=== PATIENT | female | born 1980 | race Caucasian/White ===

== ENCOUNTER → 2016-10-08 | Outpatient (CLI) | payer MEDICAID ==
[~2016-10-08] MED LIST: CITR500T PO; GAS-CAP3 PO; MAKE250I IM; PREN1CHW7 PO
== END ==
LOC: HPND 09:04
PROVIDERS: ATTEND Obstetrics & Gynecology
DX: O09.522 Supervision of elderly multigravida, second trimester (principal); O09.212 Supervision of pregnancy with history of pre-term labor, second trimester; Z3A.19 19 weeks gestation of pregnancy
CPT/HCPCS: 76811; 76817

== ENCOUNTER → 2016-10-21 | Outpatient (CLI) | payer MEDICAID | LOC: HPND 08:25 | PROVIDERS: ATTEND Obstetrics & Gynecology | DX: O09.522 Supervision of elderly multigravida, second trimester (principal); O09.212 Supervision of pregnancy with history of pre-term labor, second trimester; Z3A.21 21 weeks gestation of pregnancy | CPT/HCPCS: 76815; 76817 ==

== ENCOUNTER → 2016-10-29 | Outpatient (CLI) | payer MEDICAID ==
--- NOTE | 2016-10-29 16:30 | MH ---
cc: GINNY SAENZ MD DATE OF ADMISSION: 10/29/2016 HISTORY: This patient is a 35 year-old female, she is a 4, Para 1, who is being admitted to [facility] for Cervical cerclage. HISTORY OF PRESENT ILLNESS: The patient is well known to the practice and followed in the clinic throughout her . She is approximately 23 weeks gestation and has a history of one which was . Because of that we have been following her with maternal field medicine measuring cervical length and her recent cervical length was markedly shortened at 1.2 cm's. This despite her also being on [place]. In consultation with regional obstetrics. We have discussed the proceeding with cervical cerclage and this will be done tomorrow. OBSTETRICAL HISTORY: Includes a term delivery and two deliveries. The weights of the infants were between 3 lbs and 8 lbs. PAST MEDICAL HISTORY: Essentially noncontributory. SOCIAL HISTORY: She is a smoker and admits to smoking every day. ALLERGIES LATEX PENICILLIN PAST SURGICAL HISTORY: Noncontributory. PHYSICAL EXAMINATION: IN GENERAL: The patient seemed well developed, well nourished, in no acute distress. VITAL SIGNS: Blood pressure 110/60, pulse 70, respirations 12. HEAD, EARS, EYES, NOSE, AND THROAT: Negative. CHEST: Clear to auscultation. CARDIOVASCULAR SYSTEM: Revealed a regular rate. ABDOMEN: The abdomen reveals fundal height 23 weeks, positive heart tones. PELVIC: Examination was deferred. EXTREMITIES: Revealed no clubbing, cyanosis or edema. NEUROLOGIC/PSYCHIATRIC: The patient is oriented times three. Showed no gross neurocranial deficit. IMPRESSION: On admission is cervical incompentency with a history of delivery. PLAN: To receive cervical cerclage. MD YVETTE [place]/ed /3:27 PM /4:07 PM
== END ==
LOC: HPND 13:19
PROVIDERS: ATTEND Obstetrics & Gynecology
DX: O09.522 Supervision of elderly multigravida, second trimester (principal); O26.872 Cervical shortening, second trimester; Z3A.00 Weeks of gestation of pregnancy not specified
CPT/HCPCS: 76815; 76817

== ENCOUNTER → 2016-10-30 | Day surgery (SDC) | payer MEDICAID ==
[~2016-10-30] VITALS: Ht 167.6 cm; Wt 75.2 kg
[~2016-10-30] MED LIST changes: +CLINDAMYCIN PHOS 900 MG/6 ML VIAL ONE; +DO NOT ADM ANY ANTICOAGULANT DRUGS PRN; +ceFAZolin 2 GM PREMIX 50 ML IV SCH
[2016-10-30 12:26] VITALS: BP 111/68; PULSE 74; RESP 20; TEMP 98.4; O2SAT 99
[2016-10-30 15:50] VITALS: BP 119/67; PULSE 77; RESP 20; TEMP 97.7; O2SAT 100
--- NOTE | 2016-10-31 08:16 | MP ---
cc: JASON WILLARD MD DATE OF SURGERY 10/30/2016 PREOPERATIVE DIAGNOSIS Cervical incompetence. POSTOPERATIVE DIAGNOSIS Cervical incompetence. OPERATION Cervical cerclage. SURGEON MD Sudheer ANESTHESIA Spinal. ESTIMATED BLOOD LOSS Minimal. COMPLICATIONS None. S[employer] None. FINDINGS Findings were consistent with an extremely effaced cervix, approximately 80% effaced. The cervical length was extremely short and probably less than 1 cm. PROCEDURE The patient was prepped and draped in dorsal lithotomy position. A weighted speculum was placed in the posterior vaginal vault and the anterior lip of the cervix was grasped with a single-tooth tenaculum. Using a #1 Prolene, a circumferential suture was placed approximately 1 cm from the cervical orifice and then tied in the midline. A second suture of #1 Prolene was also placed, approximately 0.5 cm from the first, also in a circumferential suture. The suture was also tied in the midline. After good hemostasis was noted, the tenaculum was removed and the patient returned to the recovery room in stable condition. Jason Willard MD JSG/SSB /2:01 PM /8:09 AM
== END | disposition home or self-care (01) ==
LOC: HSDC 11:14
PROVIDERS: ATTEND Obstetrics & Gynecology
DX: O34.32 Maternal care for cervical incompetence, second trimester (principal); O99.332 Smoking (tobacco) complicating pregnancy, second trimester; O09.522 Supervision of elderly multigravida, second trimester; Z3A.23 23 weeks gestation of pregnancy; Z87.51 Personal history of pre-term labor; Z88.0 Allergy status to penicillin; Z91.040 Latex allergy status

== ENCOUNTER → 2016-11-04 | Outpatient (CLI) | payer MEDICAID ==
[~2016-11-04] MED LIST changes: -CLINDAMYCIN PHOS 900 MG/6 ML VIAL ONE; -DO NOT ADM ANY ANTICOAGULANT DRUGS PRN; -ceFAZolin 2 GM PREMIX 50 ML IV SCH
== END ==
LOC: HPND 09:28
PROVIDERS: ATTEND Obstetrics & Gynecology
DX: O09.522 Supervision of elderly multigravida, second trimester (principal); O09.212 Supervision of pregnancy with history of pre-term labor, second trimester
CPT/HCPCS: 76816; 76817

== ENCOUNTER → 2016-12-06 | Outpatient (CLI) | payer MEDICAID ==
[~2016-12-06] MED LIST changes: +PROM25TA10 PO
== END ==
LOC: HPND 09:49
PROVIDERS: ATTEND Obstetrics & Gynecology
DX: O09.522 Supervision of elderly multigravida, second trimester (principal); O34.32 Maternal care for cervical incompetence, second trimester
CPT/HCPCS: 76816; 76817; 96372

== ENCOUNTER → 2016-12-09 | Outpatient (CLI) | payer MEDICAID ==
[~2016-12-09] MED LIST changes: +BETAMETHASONE SOD PHOS/ACETATE SUSP 30 MG/5 ML VIAL IM ONE
== END ==
LOC: HOBG 09:10
PROVIDERS: ATTEND Obstetrics & Gynecology
DX: O09.212 Supervision of pregnancy with history of pre-term labor, second trimester (principal); O34.32 Maternal care for cervical incompetence, second trimester
CPT/HCPCS: 96372; J0702

== ENCOUNTER → 2016-12-10 | Outpatient (CLI) | payer MEDICAID | LOC: HOBG 08:30 | PROVIDERS: ATTEND Obstetrics & Gynecology | DX: O09.212 Supervision of pregnancy with history of pre-term labor, second trimester (principal); O34.32 Maternal care for cervical incompetence, second trimester | CPT/HCPCS: 96372; J0702 ==

== ENCOUNTER → 2017-01-01 | Outpatient (CLI) | payer MEDICAID ==
[~2017-01-01] MED LIST changes: -BETAMETHASONE SOD PHOS/ACETATE SUSP 30 MG/5 ML VIAL IM ONE; +BETAMETHASONE SOD PHOS/ACETATE SUSP 30 MG/5 ML VIAL IM SCH
== END ==
LOC: HOBG 10:57
PROVIDERS: ATTEND Obstetrics & Gynecology
DX: O60.03 Preterm labor without delivery, third trimester (principal); Z3A.00 Weeks of gestation of pregnancy not specified
CPT/HCPCS: 96372; J0702

== ENCOUNTER → 2017-01-02 | Outpatient (CLI) | payer MEDICAID ==
[~2017-01-02] MED LIST changes: +BETAMETHASONE SOD PHOS/ACETATE SUSP 30 MG/5 ML VIAL IM ONE; -BETAMETHASONE SOD PHOS/ACETATE SUSP 30 MG/5 ML VIAL IM SCH
== END ==
LOC: HOBG 10:25
PROVIDERS: ATTEND Obstetrics & Gynecology
DX: O60.03 Preterm labor without delivery, third trimester (principal); Z3A.00 Weeks of gestation of pregnancy not specified
CPT/HCPCS: J0702

== ENCOUNTER → 2017-01-06 | Outpatient (CLI) | payer MEDICAID ==
[~2017-01-06] MED LIST changes: -BETAMETHASONE SOD PHOS/ACETATE SUSP 30 MG/5 ML VIAL IM ONE
== END ==
LOC: HPND 08:06
PROVIDERS: ATTEND Obstetrics & Gynecology
DX: O09.523 Supervision of elderly multigravida, third trimester (principal); O34.33 Maternal care for cervical incompetence, third trimester; O99.333 Smoking (tobacco) complicating pregnancy, third trimester
CPT/HCPCS: 76816

== ENCOUNTER 2017-01-28 13:08 | Inpatient (IN) | payer MEDICAID ==
[2017-01-28] VITALS (43 sets, daily range): BP systolic 90–139; BP diastolic 44–89; PULSE 62–87; RESP 18; TEMP 97.4–98.1
[~2017-01-28] VITALS: Ht 170.2 cm; Wt 82.0 kg
--- NOTE | 2017-01-28 14:44 | PD ---
HPI Chief Complaint Gush of fluid from vagina Date Seen: Jan 28, 2017 Travel History International Travel<30 Days: No Contact w/Intl Traveler<30Days: No Known Affected Area: No History of Present Illness HPI Patient is a 36 year old at 35 and 2/7 weeks who presented today for a "gush of fluid" from her vagina. The patient states it occurred earlier today, was clear, no blood or other discharge. States she has had contractions for the past 5 months, however notes today that the contraction are stronger and spaced closer together at 1 every 3-5 minutes. No complaints of chest pain, shortness of breath, headache, changes in vision, other abdominal pains, changes in urination or changes in bowel habits. The patient reports tat she has been induced for her past 3 pregnancies and has a cerclage in place at this time. States she was breech at last US. Otherwise reports no other complications during this . Weeks Gestation: 35 Para: 3 : 4 Miscarriage: 0 : 0 History Past Medical History Medical History: Denies Significant Hx Obstetric History Obstetric History 3 past inductions, cervical insufficiency Past Surgical History Surgical History: No Previous Surgery Family History Family History: Negative Social History Alcohol Use: No Tobacco Use: Yes (States she was a daily smoker during the first trimester) Substance Abuse: No Allergies-Medications (Allergen,Severity, Reaction): Coded Allergies: latex (Verified Allergy, Unknown, 01/28/17) penicillin G (Verified Allergy, Unknown, 01/28/17) Home Meds Active Scripts Promethazine (Phenergan) 25 Mg Tablet, 25 MG PO Q6H Y for SLEEP, #10 TAB 0 Refills Prov:Jason Willard MD 12/11/16 Vit W/ Ferric Phospha (Vitafol Gummies 3.33-0.333-34.8 mg) 1 Chw Chw, 1 CAPLET PO DAILY Y for Nutritional Supplement, #90 BOTTLE Prov:Jason Willard MD 08/14/16 Reported Medications Hydroxyprogesterone Caproate Inj (Rafia Inj) 250 Mg/Ml Inj, 250 MG IM ONCE for , #1 VIAL 0 Refills 11/11/16 Methylcellulose (Citrucel) 500 Mg Tab, 2 TAB PO DAILY, TAB 0 Refills 10/30/16 Simethicone (Gas-X Ultra Strength) 180 Mg Cap, 180 MG PO TID Y for GAS RETENTION , CAP 0 Refills 10/30/16 Review of Systems General / Constitutional: No: Fever, Chills Eyes: No: Diploplia, Blurred Vision, Visual changes, Pain HENT: No: Headaches, Vertigo, Lightheadedness Cardiovascular: No: Irregular Rhythm, Chest Pain or Discomfort, Palpitations, Tachycardia, Syncope Respiratory: No: Cough, Short of Breath, Wheezing Gastrointestinal: Constipation, No: Nausea, Vomiting, Diarrhea, Abdominal Pain , Hematemesis, Hematochezia Genitourinary: No: Urgency, Frequency, Dysuria, Nocturia, Hematuria, Decreased Urinary Output, Incontinence Musculoskeletal: Cramping, No: Limited ROM, Weakness Skin: No Rash, No Itching, No Dryness Neurologic: No: Weakness, Dizziness, Syncope, Headache Psychiatric: No: Anxiety, Depression Endocrine: No: Heat Intolerance, Cold Intolerance Physical Exam Narrative GENERAL: Well-nourished, well-developed patient. SKIN: Warm and dry. HEAD: Normocephalic and atraumatic. EYES: No scleral icterus. No injection or drainage. ENT: No nasal drainage noted. Mucous membranes pink. Airway patent. NECK: Supple, trachea midline. No JVD. CARDIOVASCULAR: Regular rate and rhythm without murmurs, gallops, or rubs. RESPIRATORY: Breath sounds equal bilaterally. No accessory muscle use. ABDOMEN/GI: Abdomen soft, non-tender, bowel sounds present, no rebound, no guarding GENITOURINARY: External Genitalia: intact and normal in appearance Dilatation: 2 Effacement: 80 Station: -2 Presentation: Vertex Membranes: SROM Uterine Contractions: 3-5 minutes FHT's: Category: 1 Baseline: 130 Reactive: + Variability: moderate Decels: none EXTREMITIES: No cyanosis or edema. BACK: Nontender without obvious deformity. No CVA tenderness. NEUROLOGICAL: Awake and alert. Motor and sensory grossly within normal limits. Five out of 5 muscle strength in all muscle groups. Normal speech. MDM Narrative Course / MDM 36 year old at 35 and 2/7 who presented with gush of fluid and strengthening contractions increasing in frequency. Amnisure positive. Currently in active labor. States GBS (-), unable to verify in EMR at this time. Vertex presentation on bedside US. - Admitted to labor and delivery - Category 1 tracing reassuring - Expectant delivery - GBS confirmed negative via phone call to office - Cerclage to be removed d/w Dr. Lay Diagnosis Diagnosis: Primary Impression: labor in third trimester Additional Impression: 35 weeks gestation of Constantin Summers MD R1 Jan 28, 2017 14:44
[2017-01-28] MEDS ORDERED: LACTATED RINGER'S 1000 ML INJ 1,000 ML IV PRN (15:05)
[2017-01-28] MEDS: LACTATED RINGER'S 1000 ML INJ 1,000 ML IV SCH ×3 (15:05→23:05)
[2017-01-28] MEDS ORDERED: OXYTOCIN 30 UNITS-500ML PREMIX 500 ML IV ONE (15:15)
[2017-01-28] MEDS ORDERED: SODIUM CHLORID 0.9% 500 ML INJ 500 ML IV PRN (15:15)
[2017-01-28] MEDS ORDERED: MINERAL OIL 10 ML VIAL TOPICAL PRN (15:15)
[2017-01-28] MEDS ORDERED: LIDOCAINE HCL 1% 50 ML VIAL INFIL PRN (15:15)
[2017-01-28] MEDS ORDERED: LIDOCAINE HCL 1% 50 ML VIAL I-DERMAL PRN (15:15)
[2017-01-28] MEDS ORDERED: ONDANSETRON HCL 4 MG/2 ML VIAL IV PRN (15:15)
[2017-01-28] MEDS ORDERED: CITRIC ACID-SODIUM CITRATE LIQ 30 ML UDC PO SCH (15:15)
[2017-01-28] MEDS ORDERED: SODIUM CHLOR 0.9% 1000 ML INJ 1,000 ML IV PRN (15:25)
--- NOTE | 2017-01-28 15:51 | HHI.HP ---
History & Physical H&P HPI HPI Chief Complaint Gush of fluid from vagina Date Seen: Jan 28, 2017 Travel History International Travel<30 Days: No Contact w/Intl Traveler<30Days: No Known Affected Area: No History of Present Illness HPI Patient is a 36 year old at 35 and 2/7 weeks who presented today for a "gush of fluid" from her vagina. The patient states it occurred earlier today, was clear, no blood or other discharge. States she has had contractions for the past 5 months, however notes today that the contraction are stronger and spaced closer together at 1 every 3-5 minutes. No complaints of chest pain, shortness of breath, headache, changes in vision, other abdominal pains, changes in urination or changes in bowel habits. The patient reports tat she has been induced for her past 3 pregnancies and has a cerclage in place at this time. States she was breech at last US. Otherwise reports no other complications during this . Weeks Gestation: 35 Para: 3 : 4 Miscarriage: 0 : 0 History (Limited) History Past Medical History Medical History: Denies Significant Hx Obstetric History Obstetric History 3 past inductions, cervical insufficiency Past Surgical History Surgical History: No Previous Surgery Family History Family History: Negative Social History Alcohol Use: No Tobacco Use: Yes (States she was a daily smoker during the first trimester) Substance Abuse: No Allergies-Medications Allergies-Medications (Allergen,Severity, Reaction): Coded Allergies: latex (Verified Allergy, Unknown, 01/28/17) penicillin G (Verified Allergy, Unknown, 01/28/17) Home Meds Active Scripts Promethazine (Phenergan) 25 Mg Tablet, 25 MG PO Q6H Y for SLEEP, #10 TAB 0 Refills Prov:Jason Willard MD 12/11/16 Vit W/ Ferric Phospha (Vitafol Gummies 3.33-0.333-34.8 mg) 1 Chw Chw, 1 CAPLET PO DAILY Y for Nutritional Supplement, #90 BOTTLE Prov:Jason Willadr MD 08/14/16 Reported Medications Hydroxyprogesterone Caproate Inj ([place] Inj) 250 Mg/Ml Inj, 250 MG IM ONCE for , #1 VIAL 0 Refills 11/11/16 Methylcellulose (Citrucel) 500 Mg Tab, 2 TAB PO DAILY, TAB 0 Refills 10/30/16 Simethicone (Gas-X Ultra Strength) 180 Mg Cap, 180 MG PO TID Y for GAS RETENTION , CAP 0 Refills 10/30/16 ROS Review of Systems General / Constitutional: No: Fever, Chills Eyes: No: Diploplia, Blurred Vision, Visual changes, Pain HENT: No: Headaches, Vertigo, Lightheadedness Cardiovascular: No: Irregular Rhythm, Chest Pain or Discomfort, Palpitations, Tachycardia, Syncope Respiratory: No: Cough, Short of Breath, Wheezing Gastrointestinal: Constipation, No: Nausea, Vomiting, Diarrhea, Abdominal Pain , Hematemesis, Hematochezia Genitourinary: No: Urgency, Frequency, Dysuria, Nocturia, Hematuria, Decreased Urinary Output, Incontinence Musculoskeletal: Cramping, No: Limited ROM, Weakness Skin: No Rash, No Itching, No Dryness Neurologic: No: Weakness, Dizziness, Syncope, Headache Psychiatric: No: Anxiety, Depression Endocrine: No: Heat Intolerance, Cold Intolerance Physical Exam Physical Exam Narrative GENERAL: Well-nourished, well-developed patient. SKIN: Warm and dry. HEAD: Normocephalic and atraumatic. EYES: No scleral icterus. No injection or drainage. ENT: No nasal drainage noted. Mucous membranes pink. Airway patent. NECK: Supple, trachea midline. No JVD. CARDIOVASCULAR: Regular rate and rhythm without murmurs, gallops, or rubs. RESPIRATORY: Breath sounds equal bilaterally. No accessory muscle use. ABDOMEN/GI: Abdomen soft, non-tender, bowel sounds present, no rebound, no guarding GENITOURINARY: External Genitalia: intact and normal in appearance Dilatation: 2 Effacement: 80 Station: -2 Presentation: Vertex Membranes: SROM Uterine Contractions: 3-5 minutes FHT's: Category: 1 Baseline: 130 Reactive: + Variability: moderate Decels: none EXTREMITIES: No cyanosis or edema. BACK: Nontender without obvious deformity. No CVA tenderness. NEUROLOGICAL: Awake and alert. Motor and sensory grossly within normal limits. Five out of 5 muscle strength in all muscle groups. Normal speech. Data Data MDM MDM Narrative Course / MDM 36 year old at 35 and 2/7 who presented with gush of fluid and strengthening contractions increasing in frequency. Amnisure positive. Currently in active labor. States GBS (-), unable to verify in EMR at this time. Vertex presentation on bedside US. - Admitted to labor and delivery - Category 1 tracing reassuring - Expectant delivery - GBS confirmed negative VIA phone call to office - Cerclage to be removed d/w Dr. Lay Diagnosis Diagnosis: Primary Impression: labor in third trimester Additional Impression: 35 weeks gestation of Constantin Summers MD R1 Jan 28, 2017 15:51
[2017-01-28 16:04] LABS: AUTOMATED NEUTROPHIL # 8.9 TH/MM3 (1.8-7.7); BASOPHIL % 0.3 % (0.0-2.0); EOSINOPHIL % 0.3 % (0.0-4.0); HEMATOCRIT 35.8 % (35.0-46.0); HEMO FLAGS DIFF FINAL; LYMPH % 14.4 % (9.0-44.0); LYMPHOCYTE # 1.7 TH/MM3 (1.0-4.8); MEAN CELL VOLUME 90.1 FL (80.0-100.0); MEAN CORPUSCULAR HEMOGLOBIN 30.6 PG (27.0-34.0); MONO % 8.9 % (0.0-8.0); NEUT % 76.1 % (16.0-70.0); PLATELET COUNT 226 TH/MM3 (150-450); RED BLOOD COUNT 3.97 MIL/MM3 (4.00-5.30); RED CELL DISTRIBUTION WIDTH 15.4 % (11.6-17.2); WHITE BLOOD COUNT 11.7 TH/MM3 (4.0-11.0)
[2017-01-28] MEDS ORDERED: OXYTOCIN 30 UNITS-500ML PREMIX 500 ML IV SCH (16:15)
--- NOTE | 2017-01-28 16:45 | HHI.PR ---
Subjective Remarks Cerclage removal procedure note Patient was examined and cerclage visible, palpated to have closed cervic with cerclage palpable. Patient was consented from procedure including pain, infection, bleeding, difficult removal with cervical trauma, need for removal in OR, failure to remove entire cerclage and other possible complications. Patient reexamined and cerclage dislodged during examination and removed with a ring forcep. No bleeding noted. Patient tolerated procedure well. Objective Vital Signs Date Time Temp Pulse Resp B/P (MAP) Pulse Ox O2 Delivery O2 Flow Rate FiO2 01/28/17 16:32 18 01/28/17 15:45 98.1 01/28/17 15:43 18 01/28/17 15:32 78 134/71 (92) Result Diagram: 01/28/17 1450 Bel Lay MD Jan 28, 2017 16:45
[2017-01-28] MEDS ORDERED: CLINDAMYCIN INJ 900 MG in SODIUM CHLORIDE 0.9% INJ 100 ML IV SCH (17:00)
[2017-01-28] MEDS ORDERED: fentaNYL 2MCG-BUPIV 0.125% INJ 100 ML ONE (22:11)
--- NOTE | 2017-01-28 22:30 | PD.LABORPN ---
Subjective Subjective Patient received fentanyl for pain, is planning on epidural Objective Vital Signs Vital Signs Date Time Temp Pulse Resp B/P (MAP) Pulse Ox O2 Delivery O2 Flow Rate FiO2 01/28/17 22:19 18 01/28/17 22:18 97.9 01/28/17 22:17 73 124/71 (88) 01/28/17 21:45 18 01/28/17 21:31 87 137/83 (101) 01/28/17 21:04 18 01/28/17 21:01 76 119/45 (69) 01/28/17 20:15 18 01/28/17 20:01 76 120/67 (84) 01/28/17 19:29 97.4 01/28/17 19:13 72 133/89 (104) 01/28/17 19:12 18 01/28/17 18:30 18 01/28/17 18:22 75 120/69 (86) 01/28/17 17:49 97.8 76 18 127/73 (91) 01/28/17 17:19 18 01/28/17 17:18 73 123/63 (83) 01/28/17 16:45 74 133/73 (93) 01/28/17 16:33 79 120/71 (87) 01/28/17 16:32 18 01/28/17 15:45 98.1 01/28/17 15:43 18 01/28/17 15:32 78 134/71 (92) Objective Pelvic Exam: 4/80/-3ed] Uterine Contractions: [-] FHT's: 115s, moderate LTV, good accels, no decels at this time A/P: 1. IUP at 35.1 2. PPROM: continue oxytocin 3. GBS neg 4. FHR reassuring, continue EFM Weeks Gestation: 35 Gest Age Assessed Date: Jan 28, 2017 Gest Age Assessed Time: 22:30 Pt started active labor?: Yes Active labor start date: Jan 28, 2017 Active labor start time: 22:30 Medical induction of labor?: Yes Medical induction start date: Jan 28, 2017 Medical induction start time: 17:00 Artificial rupture of membrane: No Bel Lay MD Jan 28, 2017 22:30
[2017-01-28 23:28] LABS: BACTERIA, URINE RARE /hpf; BLOOD, URINE NEG (NEG); COMMENT (UR) CULT NOT INDICATED; CULTURE IF INDICATED CULT NOT INDICATED; GLUCOSE,URINE NEG (NEG); KETONE, URINE NEG (NEG); MUCUS URINE FEW /lpf (OCC); NITRITE,URINE NEG (NEG); PH, URINE 5.5 (5.0-8.5); URINE COLOR YELLOW (YELLW/STRAW)
[2017-01-28] MEDS ORDERED: NO SYSTEM NARCOTICS PRN (23:30)
[2017-01-28] MEDS ORDERED: ePHEDrine/NS 25 MG/5 ML SYR IV PRN (23:30)
[2017-01-28] MEDS ORDERED: fentaNYL 2MCG-BUPIV 0.125% 100 ML EPIDURAL SCH (23:30)
[2017-01-28] MEDS ORDERED: DO NOT ADMINISTER ANTICOAGULANTS PRN (23:30)
[2017-01-28] MEDS ORDERED: MISOPROSTOL 200 MCG TAB ONE (23:58)
[2017-01-29] VITALS (36 sets, daily range): BP systolic 94–129; BP diastolic 51–86; PULSE 59–107; RESP 17–18; TEMP 97.1–98.1
--- NOTE | 2017-01-29 02:48 | PD.OB.DELI ---
Weeks gestation: 35 Gest age assessed date: Jan 28, 2017 Gest age assessed time: 22:30 Pt started active labor?: Yes Active labor start date: Jan 28, 2017 Active labor start time: 22:30 Medical induction of labor?: Yes Medical induction start date: Jan 28, 2017 Medical induction start time: 17:00 Artificial rupture of membrane: No Anesthesia: Epidural Episiotomy: None Vaginal Delivery: Normal Presentation: Occiput anterior Nuchal Cord: x1 Delayed cord clamping (45 sec): Yes (Delayed 3 min as per patient's request) : Female Delivery date: Jan 29, 2017 Delivery time: 02:29 One Minute : 9 Five Minute : 9 Weight: 2200g Placenta: Spontaneous delivery Laceration: No lacerations Estimated blood loss: 150 Additional Information Patient progressed to C/C/+1 with overall reassuring heart tones and spontaneous urge to push. maternal expulsive efforts initiatied with subsequent atraumatic expulsion of head followed by atraumatic and spontaneous expulsion of anterior shoulder and remainder of . A nuchal cord was noted but the was delivered through the cord. The vigorous was placed on the maternal abdomen for skin to skin. After a delayed period, the cord was doubly clamped and cut. Apgars 9/9. Placenta delivered spontaneous and appeared intact. No lacerations noted. EBL 150cc. Mother and doing well. Bel Lay MD Jan 29, 2017 02:48
[2017-01-29] MEDS ORDERED: SODIUM CHLORIDE 0.9% FLUSH 10 ML FLUSH IV FLUSH PRN (03:00)
[2017-01-29] MEDS ORDERED: WITCH HAZEL 50%/GLYCERIN 12.5% 40 PAD JAR TOPICAL PRN (03:00)
[2017-01-29] MEDS ORDERED: ALUMINUM/MAGNESIUM/SIMETH 30 ML CUP PO PRN (03:00)
[2017-01-29] MEDS ORDERED: oxyCODONE/ACETAMINOPHEN 5 MG/325 MG TAB PO PRN ×2 (03:00)
[2017-01-29] MEDS ORDERED: ZOLPIDEM TARTRATE 5 MG TAB PO PRN (03:00)
[2017-01-29] MEDS ORDERED: ONDANSETRON ODT 4 MG TAB PO PRN (03:00)
[2017-01-29] MEDS ORDERED: BENZOCAINE 20% TOPICAL SPRAY 60 ML CAN TOPICAL PRN (03:00)
[2017-01-29] MEDS ORDERED: ACETAMINOPHEN 325 MG TAB PO PRN (03:00)
[2017-01-29] MEDS ORDERED: OXYTOCIN 30 UNITS-500ML PREMIX 500 ML IV SCH (03:00)
[2017-01-29] MEDS: IBUPROFEN 600 MG TAB PO PRN ×3 (05:34→22:46)
[2017-01-29] MEDS: DOCUSATE SODIUM 50 MG/SENNA 8.6 MG TAB PO PRN ×2 (05:35→22:45)
--- NOTE | 2017-01-29 06:39 | HHI.OB ---
Subjective Remarks PPD day # 0. No acute issues overnight, vitals are stable, patient remains afebrile. Decreasing lochia and pain. Patient is ambulating without difficulty and voiding independently. She is feeding the baby via breast/formula. She denies any nausea or vomiting and has a good appetite. Positive flatus/bowel movement. She denies any calf pain, chest pain, or shortness of breath. She is bonding well with . Objective Vitals/I&O Vital Signs Date Time Temp Pulse Resp B/P (MAP) Pulse Ox O2 Delivery O2 Flow Rate FiO2 01/29/17 05:20 97.9 64 18 100/59 (73) 01/29/17 04:05 18 01/29/17 04:00 72 112/66 (81) 01/29/17 03:45 64 123/72 (89) 01/29/17 03:30 63 126/71 (89) 01/29/17 03:29 97.8 18 01/29/17 03:20 18 01/29/17 03:17 67 113/58 (76) 01/29/17 03:16 72 01/29/17 03:05 18 01/29/17 03:01 99 01/29/17 02:46 84 129/54 (79) 01/29/17 02:05 76 18 01/29/17 02:00 72 118/68 (85) 01/29/17 02:00 71 01/29/17 01:45 67 18 121/86 (98) 01/29/17 01:45 107 01/29/17 01:40 64 01/29/17 01:35 61 01/29/17 01:30 64 113/57 (75) 01/29/17 01:30 64 01/29/17 01:20 68 01/29/17 01:15 65 117/69 (85) 01/29/17 01:15 63 01/29/17 01:10 68 01/29/17 01:05 65 01/29/17 01:00 59 01/29/17 01:00 63 118/61 (80) 01/29/17 00:48 98.0 18 01/29/17 00:46 95 102/51 (68) 01/29/17 00:45 86 01/29/17 00:42 18 01/29/17 00:40 100 01/29/17 00:35 80 01/29/17 00:30 107 01/29/17 00:30 70 128/86 (100) 01/29/17 00:16 97 121/70 (87) 01/29/17 00:15 71 01/29/17 00:00 69 01/29/17 00:00 76 122/70 (87) 01/29/17 00:00 76 122/70 (87) 01/28/17 23:55 73 01/28/17 23:55 73 01/28/17 23:50 66 01/28/17 23:50 66 01/28/17 23:45 18 01/28/17 23:45 65 01/28/17 23:45 65 01/28/17 23:45 67 127/67 (87) 01/28/17 23:45 18 01/28/17 23:45 127/67 (87) 01/28/17 23:35 71 01/28/17 23:30 70 111/61 (78) 01/28/17 23:30 71 01/28/17 23:15 72 98/47 (64) 01/28/17 23:15 69 01/28/17 23:10 68 01/28/17 23:05 75 01/28/17 23:00 72 111/44 (66) 01/28/17 23:00 69 01/28/17 22:53 18 01/28/17 22:52 63 102/53 (69) 01/28/17 22:50 64 01/28/17 22:48 84 90/54 (66) 01/28/17 22:46 63 91/66 (74) 01/28/17 22:45 68 01/28/17 22:40 62 01/28/17 22:40 70 114/62 (79) 01/28/17 22:35 78 139/69 (92) 01/28/17 22:35 76 01/28/17 22:30 70 125/72 (89) 01/28/17 22:30 69 01/28/17 22:25 78 01/28/17 22:25 73 111/68 (82) 01/28/17 22:20 71 01/28/17 22:20 67 122/74 (90) 01/28/17 22:19 18 01/28/17 22:18 97.9 01/28/17 22:17 73 124/71 (88) 01/28/17 21:45 18 01/28/17 21:31 87 137/83 (101) 01/28/17 21:04 18 01/28/17 21:01 76 119/45 (69) 01/28/17 20:15 18 01/28/17 20:01 76 120/67 (84) 01/28/17 19:29 97.4 01/28/17 19:13 72 133/89 (104) 01/28/17 19:12 18 01/28/17 18:30 18 01/28/17 18:22 75 120/69 (86) 01/28/17 17:49 97.8 76 18 127/73 (91) 01/28/17 17:19 18 01/28/17 17:18 73 123/63 (83) 01/28/17 16:45 74 133/73 (93) 01/28/17 16:33 79 120/71 (87) 01/28/17 16:32 18 01/28/17 15:45 98.1 01/28/17 15:43 18 01/28/17 15:32 78 134/71 (92) Objective Remarks GENERAL: Well-nourished, well-developed patient. CARDIOVASCULAR: Regular rate and rhythm without murmurs, gallops, or rubs. RESPIRATORY: Breath sounds equal bilaterally. No accessory muscle use. ABDOMEN/GI: Abdomen soft, non-tender. Fundus: Firm, non-tender at umbilicus. GENITOURINARY: Light to moderate bleeding. EXTREMITIES: No cyanosis or edema, non-tender, without signs of DVT. Medications and IVs Current Medications Medications (Trade) Dose Ordered Sig/Theo Route Start Time Stop Time Status Last Admin (NS Flush) 2 ml BID IV FLUSH 01/29/17 09:00 (NS Flush) 2 ml UNSCH PRN IV FLUSH 01/29/17 03:00 Oxytocin 500 ml @ 100 mls/hr CONTINUOUS IV 01/29/17 03:00 01/29/17 07:59 (Tylenol) 650 mg Q4H PRN PO 01/29/17 03:00 (Motrin) 600 mg Q6H PRN PO 01/29/17 03:00 01/29/17 05:34 (Percocet 5-325 Mg) 1 tab Q4H PRN PO 01/29/17 03:00 (Percocet 5-325 Mg) 2 tab Q4H PRN PO 01/29/17 03:00 (Americaine 20% Top Spr) 1 spray Q4H PRN TOPICAL 01/29/17 03:00 (Tucks Pads) 1 applic QID PRN TOPICAL 01/29/17 03:00 (Kirstie-Colace) 2 tab Q12H PRN PO 01/29/17 03:00 01/29/17 05:35 (Ambien) 5 mg HS PRN PO 01/29/17 03:00 (M-M-R Ii Inj) 0.5 ml ONCE ONCE SQ 01/29/17 16:00 01/29/17 16:01 (Boostrix Inj) 0.5 ml ONCE ONCE IM 01/29/17 16:00 01/29/17 16:01 (Mag-Al Plus Susp Liq) 15 ml Q8H PRN PO 01/29/17 03:00 (Zofran Odt) 4 mg Q6H PRN PO 01/29/17 03:00 Assessment/Plan Problem List: (1) (spontaneous vaginal delivery) ICD Codes: O80 - Encounter for full-term uncomplicated delivery Assessment and Plan 36 y/o female who is PPD # 0 s/p . -Continue routine care. -Percocet and Motrin PRN pain. -Encouraged OOB. Advised pelvic rest for 6 wks. -Re: ctrl, she would like to consider her options. - Discharge home in 1-[address] MD, R3 Jan 29, 2017 06:39
[2017-01-29] MEDS ORDERED: SODIUM CHLORIDE 0.9% FLUSH 10 ML FLUSH IV FLUSH SCH (09:00)
[2017-01-29] MEDS ORDERED: BREAST PUMP1 MI1 (10:33)
[2017-01-29] MEDS ORDERED: DIPHTH/TETANUS/ACEL PERTUSSIS (BOOSTER) 0.5 ML VIAL/PFS IM ONE (16:00)
[2017-01-29] MEDS ORDERED: MEASLES, MUMPS, RUBELLA VACCINE 0.5 ML VIAL SQ ONE (16:00)
--- NOTE | 2017-01-29 16:26 | HHI.PR ---
Addendum to Inpatient Note Addendum Reason: Additional Documentation Additional Information S: Resident called to bedside for patient complaints of acute onset chest pain. Patient was in the NICU, holding her when she felt sudden onset of chest pain. She states she felt a similar chest pain this morning as well but did not mention it to anyone. This episode of chest pain was acute in onset and described as a sharp pain that radiated from her central chest/epigastric region to her neck, shoulders, and jaw bilaterally. She felt like her heart was racing and it was difficult to catch her breath during this episode. She denies any diaphoresis. The episode lasted about 5 minutes. She has not eaten for the past several hours and denies any bowel movement or flatus since delivery. She denies any heartburn. She states that the pain and its associated symptoms have resolved at this time. O: Vitals: BP 103/71, Pulse: 69, RR: 17, Temp: 97.1 GENERAL: Well-nourished, well-developed female patient in no acute distress. SKIN: Warm and dry. No rashes or lesions present. EYES: No scleral icterus. No conjunctival injection or drainage. Extraocular movements intact. THROAT: Moist mucous membranes. CARDIOVASCULAR: Regular rate and rhythm without murmurs, gallops, or rubs. Strong radial and pedal pulses. CHEST: Symmetric chest expansion with respiration. RESPIRATORY: Breath sounds clear to auscultation bilaterally. No accessory muscle use. No wheezes, rhonchi or rales. GASTROINTESTINAL: Abdomen soft, non-tender, nondistended. MUSCULOSKELETAL: No cyanosis or edema. NEURO: Cranial nerves II through XII grossly intact. Good muscle tone. Normal gait and coordination. PSYCH: Normal mood and affect. Good eye contact. Good insight and judgment. Normal speech. A/P: Ddx includes cardiac ischemia versus pseudo ileus versus diaphragm spasm versus esophageal spasm versus reflux. Will obtain stat EKG, troponin, CXR for further evaluation. Addendum: EKG shows normal sinus rhythm Libia Mercedes MD, R3 Jan 29, 2017 16:26
[2017-01-29] MEDS ORDERED: ASPIRIN 325 MG TAB PO ONE (16:30)
--- NOTE | 2017-01-29 17:11 | RADRPT ---
EXAM DATE/TIME: 01/29/2017 16:49 [facility] COMPARISON: No previous studies available for comparison. INDICATIONS : Chest pain post delivery. MEDICAL HISTORY : None. SURGICAL HISTORY : None. ENCOUNTER: Initial ACUITY: 1 day PAIN SCORE: 4/10 LOCATION: Bilateral chest FINDINGS: A single view of the chest demonstrates the lungs to be symmetrically aerated without evidence of mas s, infiltrate or effusion. The cardiomediastinal contours are unremarkable. Osseous structures are intact. CONCLUSION: No acute disease. Scotty Cheung MD FACR on January 29, 2017 at 17:08 Board Certified Radiologist. This report was verified electronically.
[2017-01-30] MEDS: IBUPROFEN 600 MG TAB PO PRN (05:49)
[2017-01-30 07:22] VITALS: BP 123/85; PULSE 72; RESP 18; TEMP 98.2
--- NOTE | 2017-01-30 08:15 | HHI.OB ---
Subjective Post Day: 1 Remarks PPD day # 1. No acute issues overnight, vitals are stable, patient remains afebrile. Decreasing lochia and pain. Patient is ambulating without difficulty and voiding independently. She is feeding the baby via breast/formula. She denies any nausea or vomiting and has a good appetite. Positive flatus/bowel movement. She denies any calf pain, chest pain, or shortness of breath. Objective Vitals/I&O Vital Signs Date Time Temp Pulse Resp B/P (MAP) Pulse Ox O2 Delivery O2 Flow Rate FiO2 01/30/17 07:22 98.2 72 18 123/85 (98) 01/30/17 00:00 16 01/30/17 00:00 16 01/29/17 23:35 97.7 72 17 94/60 (71) 01/29/17 16:20 97.1 69 17 01/29/17 16:20 103/71 (82) Objective Remarks GENERAL: Well-nourished, well-developed patient. CARDIOVASCULAR: Regular rate and rhythm without murmurs, gallops, or rubs. RESPIRATORY: Breath sounds equal bilaterally. No accessory muscle use. ABDOMEN/GI: Abdomen soft, non-tender. Fundus: Firm, non-tender at umbilicus. GENITOURINARY: Light to moderate bleeding. EXTREMITIES: No cyanosis or edema, non-tender, without signs of DVT. Medications and IVs Current Medications Medications (Trade) Dose Ordered Sig/Theo Route Start Time Stop Time Status Last Admin (NS Flush) 2 ml BID IV FLUSH 01/29/17 09:00 (NS Flush) 2 ml UNSCH PRN IV FLUSH 01/29/17 03:00 (Tylenol) 650 mg Q4H PRN PO 01/29/17 03:00 (Motrin) 600 mg Q6H PRN PO 01/29/17 03:00 01/30/17 05:49 (Percocet 5-325 Mg) 1 tab Q4H PRN PO 01/29/17 03:00 01/29/17 22:46 (Percocet 5-325 Mg) 2 tab Q4H PRN PO 01/29/17 03:00 (Americaine 20% Top Spr) 1 spray Q4H PRN TOPICAL 01/29/17 03:00 01/29/17 22:45 (Tucks Pads) 1 applic QID PRN TOPICAL 01/29/17 03:00 01/29/17 22:45 (Kirstie-Colace) 2 tab Q12H PRN PO 01/29/17 03:00 01/29/17 22:45 (Ambien) 5 mg HS PRN PO 01/29/17 03:00 (Mag-Al Plus Susp Liq) 15 ml Q8H PRN PO 01/29/17 03:00 (Zofran Odt) 4 mg Q6H PRN PO 01/29/17 03:00 Assessment/Plan Problem List: (1) (spontaneous vaginal delivery) ICD Codes: O80 - Encounter for full-term uncomplicated delivery Assessment and Plan 36 y/o female who is PPD # 0 s/p . -Continue routine care. -Percocet and Motrin PRN pain. -Encouraged OOB. Advised pelvic rest for 6 wks. -Re: ctrl, she would like to consider her options and discuss with her outpatient OB. - Discharge home today or tomorrow. yvonne Simon, Constantin Jenkins MD R1 Jan 30, 2017 08:15
[2017-01-30] MEDS ORDERED: IBUP-232 PO (09:41)
--- NOTE | 2017-01-30 09:41 | HHI.DCPOC ---
Discharge Care Plan Diagnosis: (1) (spontaneous vaginal delivery) Report Symptoms to Your Doctor -Temperature above 100.5 degrees -Redness, of incision or excessive or foul smelling drainage -Unusual pain or calf pain -Increased vaginal bleeding -Painful or difficulty urinating -Feelings of extreme sadness or anxiety after 2 weeks Goals to Promote Your Health * To prevent worsening of your condition and complications * To maintain your health at the optimal level Directions to Meet Your Goals Take your medications as prescribed Follow your dietary instruction Follow activity as directed Ensure plenty of rest for recovery Drink fluids for hydration Keep your appointments as scheduled Take your immunizations and boosters as scheduled If your symptoms worsen call your PCP, if no PCP go to Urgent Care Center or Emergency Room Smoking is Dangerous to Your Health. Avoid second hand smoke Call the 24-hour crisis hotline for domestic abuse at Constantin Summers MD R1 Jan 30, 2017 09:41
--- NOTE | 2017-01-31 12:17 | EKG ---
Date Performed: 01/29/2017 Time Performed: 16:27:17 PTAGE: 36 years EKG: Sinus rhythm INDETERMINATE AXIS ATYPICAL ECG NO PREVIOUS TRACING DOCTOR: Diomedes Garza Interpretating Date/Time 01/31/2017 12:16:52
[2017-02-01 08:35] LABS: BATH SALTS (MDPV) UR NEG (NEG); ECSTASY (MDMA) UR NEG (NEG); GABAPENTIN UR NEG (NEG); HEROIN (6-ACETYLMORPHINE) UR NEG (NEG); HYDROMORPHONE U NEG (NEG); K2 SPICE UR NEG (NEG); OBMETHADONE UR NEG (NEG); PHENCYCLIDINE URINE NEG (NEG)
== END 2017-01-30 11:47 | disposition home or self-care (01) | DRG 981 ==
LOC: HOBED 13:08 → H2EB 14:44 → H1EA 01-29 04:40
PROVIDERS: ADMIT Obstetrics & Gynecology; ATTEND Obstetrics & Gynecology
PROC: 0UCC7ZZ Extirpation of Matter from Cervix, Via Natural or Artificial Opening (ICD-10-PCS; 2017-01-28)
PROC: 3E033VJ Introduction of Other Hormone into Peripheral Vein, Percutaneous Approach (ICD-10-PCS; 2017-01-28)
PROC: 10E0XZZ Delivery of Products of Conception, External Approach (ICD-10-PCS; principal; 2017-01-29)
DX: O60.14X0 Preterm labor third trimester with preterm delivery third trimester, not applicable or unspecified (principal); O42.013 Preterm premature rupture of membranes, onset of labor within 24 hours of rupture, third trimester; O69.81X0 Labor and delivery complicated by cord around neck, without compression, not applicable or unspecified; R07.9 Chest pain, unspecified; O34.33 Maternal care for cervical incompetence, third trimester; Z37.0 Single live birth; Z3A.35 35 weeks gestation of pregnancy; Z87.891 Personal history of nicotine dependence
CPT/HCPCS: 59025; 59320; 71010; 76815; 80307; 81001; 84112; 85025; 86850; 86900; 86901; 88307; 93005; G0481; J2405; J2590; J3010; J7120